=== PATIENT | female | born 1960 | race African-American/Black ===

== ENCOUNTER 2016-11-13 15:09 | Inpatient (IN) | payer MEDICARE, OTHER ==
[~2016-11-13] VITALS: Ht 152.4 cm; Wt 54.9 kg
[2016-11-13] MEDS ORDERED: LEVO75TA7 PO (15:27)
[2016-11-13] MEDS ORDERED: LISI10TA5 PO (15:27)
[2016-11-13] MEDS ORDERED: HYDR-552 PO ×2 (15:27→16:24)
[2016-11-13] MEDS ORDERED: CARV3.122 PO (15:27)
[2016-11-13] MEDS ORDERED: ZOLPIDEM TARTRATE 10 MG TABLET PO PRN (15:30)
[2016-11-13] MEDS ORDERED: MAGNESIUM HYDROXIDE 30 ML UDC PO PRN (15:30)
[2016-11-13] MEDS ORDERED: MAG HYDROX/AL HYDROX/SIMETH 30 ML UDC PO PRN (15:30)
[2016-11-13 15:38] VITALS: BP 146/81
[2016-11-13 16:00] VITALS: BP 146/81
[2016-11-13] MEDS: clonazePAM 0.5 MG TABLET PO PRN (16:44)
--- NOTE | 2016-11-13 16:46 | NUR ---
ADMITTED A 56 YEARS OLD ON 5150 FOR DTS. PT. REPORTED BEING DEPRESSED, UNABLE TO EAT OR SLEEP, STATED OUT OF MEDICATIONS AND DOESN'T FEEL SAFE, PT. STATED ALSO THAT UNKNOWN PEOPLE ARE AFTER HER. PER CLIENT'S SISTER CLIENT WROTE SUICIDAL NOTE RECENTLY. PT. CAME FROM [facility] AND ARRIVED IN THE UNIT VIA AMBULANCE AND TRANSPORTED VIA A GURNEY. PT. IS ALERT/ ORIENTED X3, AMBULATORY, CONTINENT AND WITH POOR HYGIENE. UPON FACE TO ASSESSMENT, PT. DENIES SUICIDAL AND HOMICIDAL AND CLAIMED SHE IS DEPRESSED. PT. REFUSED FOR SKIN ASSESSMENT, REFUSED SIGNING THE ADMISSION PAPERS AND REFUSED FOR NASAL SWAB FOR MRSA. DR. NAIR NOTIFIED ABOUT THE ADMISSION AND GAVE ORDERS. ROVERTO HALL MADE AWARE AND TOLD TO RECONCILE MEDS. Addendum: 11/13/16 at 1738 by BRYANNA PETERS RN PHILIP GA AT [phone] CALLED AND LEFT A MESSAGE TO CALL THE UNIT.
[2016-11-13 20:00] VITALS: BP 114/75
[2016-11-13] MEDS: HYDROCODONE/APAP 5/325MG 1 EACH TABLET PO PRN (20:02)
[2016-11-14] MEDS: clonazePAM 0.5 MG TABLET PO PRN ×3 (07:22→18:18)
[2016-11-14] MEDS: LEVOTHYROXINE SODIUM 75 MCG TABLET PO SCH (07:23)
--- NOTE | 2016-11-14 07:27 | NUR ---
GPS RN: PATIENT IS RESTLESS, ANXIOUS, WITH EPISODES OF CRYING, HARD TO REDIRECT, ASKING FOR CLONAZEPAM TO HELP HER CALM DOWN. ADMINISTERED 0.5MG CLONAZEPAM PO ORDERED, CONTINUE TO MONITOR.
[2016-11-14 08:00] VITALS: BP 115/88
[2016-11-14] MEDS: CARVEDILOL 3.125 MG TABLET PO SCH ×2 (08:43→16:12)
[2016-11-14] MEDS: LISINOPRIL (10MG) 10 MG TABLET PO SCH (08:44)
--- NOTE | 2016-11-14 09:34 | NUR ---
Initial DC Plan: Patient resides at [address] [place] [address] [place] [id number]; [phone] with her son. Patient stated that she would like to return home when she is ready for discharge. SW spoke to patient's daughter Veto Epps ([phone]) who stated "I don't care where my mother goes. She can go home if she wants." Patient unable to recall the number of her son Emmanuel but stated that she will try to get it. Patient's daughter stated that she is unable to cone picker the patient when she is ready for discharge but patient stated that she will try calling her sister and SW will follow up. SW will help form a safe and proper discharge. Addendum: 11/14/16 at 0937 by VEE STEWART For smoking cessation, patient was referred to [employer] 524-HHFG-YUM and [employer] [phone]. Patient will be given further smoking cessation resources at the time of discharge and Nicotine Anonymous meeting information.
[2016-11-14] MEDS: HYDROCODONE/APAP 5/325MG 1 EACH TABLET PO PRN ×2 (11:46→21:43)
--- NOTE | 2016-11-14 13:29 | NUR ---
GPS RN: PATIENT IS RESTLESS AND ANXIOUS, ASKING FOR CLONAZEPAM TO HELP HER CALM DOWN. ADMINISTERED 0.5MG CLONAZEPAM PO ORDERED, VSS, CONTINUE TO MONITOR.
--- NOTE | 2016-11-14 15:02 | NUR ---
RN-CO: Patient refused lab works encouraged 3x still refused.
[2016-11-14 16:00] VITALS: BP 100/73
--- NOTE | 2016-11-14 18:21 | NUR ---
GPS RN: ADMINISTERED 0.5MG CLONAZEPAM PO FOR C/O ANXIETY.
--- NOTE | 2016-11-14 19:30 | NUR ---
GPS RN NOTE, RECEIVED PATIENT AWAKE AND IN BED, PATIENT HAS A COMPLAINT OF LOWER BACK PAIN AT 4 OUT 10 ON THE PAIN SCALE. PATIENT IS BEING TREATED WITH ORAL PAIN MEDICATION FOR THIS PAIN. PATIENT IS DISPLAYING NO S/S OF APPARENT DISTRESS AT THIS TIME. PATIENT BREATHING IS UNLABORED WITH EQUAL RISE AND FALL OF THE CHEST. PATIENT IS ALERT AND ORIENTED X 3 ON ROOM AIR WITH A SPO2 OF 99%. PATIENT IS MED COMPLIANT, PARANOID, DEMANDING, DEPRESSED, AND NEEDS REORIENTATION. PATIENT DENIES SUICIDE IDEATIONS AND HOMICIDAL IDEATIONS AT THIS TIME. PATIENT ASSISTED WITH TURNING AND REPOSITIONING Q2HR AND PRN FOR COMFORT AND CIRCULATION. PATIENT HAS NO NEEDS AT THIS TIME. PATIENT EDUCATED ON THE USE OF THE CALL BRENNAN. PATIENT BED SIDE RAILS ARE UP X2 FOR SAFETY, BED IS LOCKED AND LOW WILL CONTINUE TO MONITOR AND MAINTAIN SAFETY.
[2016-11-14 20:22] VITALS: BP 93/61
--- NOTE | 2016-11-14 21:43 | NUR ---
GPS RN NOTE, PATIENT HAS A COMPLAINT OF LOWER BACK PAIN AT 8 OUT 10 ON THE PAIN SCALE AND WOULD LIKE PAIN MEDICATION AT THIS TIME. PATIENT VITAL SIGNS ARE STABLE. GAVE NORCO 5-325 1 TAB PO Q6HR PRN ORDERED. WILL REASSESS PAIN AND I WILL CONTINUE TO MONITOR THIS PATIENT.
[2016-11-14] MEDS ORDERED: TEMAZEPAM 15 MG CAPSULE PO PRN (22:00)
[2016-11-15] MEDS: clonazePAM 0.5 MG TABLET PO PRN (05:08)
--- NOTE | 2016-11-15 05:08 | NUR ---
GPS RN NOTE, PATIENT HAS A COMPLAINT OF FEELING ANXIOUS AND WOULD LIKE MEDICATION TO HELP CALM HER DOWN AT THIS TIME. PATIENT VITAL SIGNS ARE STABLE. GAVE KLONOPIN 0.5MG PO Q4HR PRN ORDERED. WILL REASSESS FOR ANXIETY AND I WILL CONTINUE TO MONITOR THIS PATIENT.
[2016-11-15 08:00] VITALS: BP 122/79
[2016-11-15] MEDS: LEVOTHYROXINE SODIUM 75 MCG TABLET PO SCH (08:47)
[2016-11-15] MEDS: SERTRALINE HCL 50 MG TABLET PO SCH (08:47)
[2016-11-15] MEDS: LISINOPRIL (10MG) 10 MG TABLET PO SCH (08:53)
[2016-11-15] MEDS: CARVEDILOL 3.125 MG TABLET PO SCH ×2 (08:53→16:22)
--- NOTE | 2016-11-15 09:13 | NUR ---
GPS RN: MORNING MEDS ADMINISTERED BY ROSIE MIXON RN
[2016-11-15] MEDS: HYDROCODONE/APAP 5/325MG 1 EACH TABLET PO PRN ×2 (14:54→20:59)
[2016-11-15 16:00] VITALS: BP 120/70
[2016-11-15 20:00] VITALS: BP 102/66
[2016-11-16] MEDS: clonazePAM 0.5 MG TABLET PO PRN (00:49)
[2016-11-16] MEDS: HYDROCODONE/APAP 5/325MG 1 EACH TABLET PO PRN (06:40)
[2016-11-16 08:10] VITALS: BP 99/63
[2016-11-16] MEDS: LISINOPRIL (10MG) 10 MG TABLET PO SCH (08:10)
[2016-11-16] MEDS: CARVEDILOL 3.125 MG TABLET PO SCH (08:10)
[2016-11-16] MEDS: LEVOTHYROXINE SODIUM 75 MCG TABLET PO SCH (08:11)
[2016-11-16] MEDS: SERTRALINE HCL 50 MG TABLET PO SCH ×2 (08:11→08:14)
--- NOTE | 2016-11-16 10:00 | NUR ---
RECEIVED PT. ASLEEP IN BED, BREATHING IS EVEN AND UNLABORED. NO SIGN OF DISTRESS AND NO AGITATION NOTED. WILL CONTINUE TO MONITOR FOR SAFETY.
--- NOTE | 2016-11-16 12:58 | NUR ---
DR. NAIR WITH AN ORDER TO D/C HOLD AND D/C HOME WITH THE DAUGHTER. PT. WITHOUT DISTRESS, DENIES SUICIDAL AND HOMICIDAL. DR. NAIR SPOKE TO THE DAUGHTER PHILIP GA AND SHE WILL COME TO PICK HER UP.
--- NOTE | 2016-11-16 13:08 | NUR ---
JOEY MOSELEY THE HEAVY D[employer]Y DIESEL MECHANIC, MADE AWARE OF THE DISCHARGE AND SAID OK FOR DISCHARGE. HE WROTE PRESCRIPTIONS.
--- NOTE | 2016-11-16 14:50 | NUR ---
PT. LEFT THE UNIT UNIT WITH BELONGINGS AND PICKED UP WITH HER DAUGHTER PHILIP GA. PT. INSTRUCTED ON MEDS TO CONTINUE AT HOME AND VERBALIZES UNDERSTANDING AND ADVISED TO MAKE A FOLLOW UP TO HER PSYCHIATRIST AND MEDICAL DOCTORS AND AGREED. LEFT THE UNIT, AMBULATORY, WITHOUT DISTRESS AND ESCORTED BY STAFF TO THE LOBBY ON STABLE CONDITION. V/S TAKE: 112/69, MT 83, RR 18, TEMP 98.0 AND OXYGEN SAT 94%.
== END 2016-11-16 14:50 | disposition home or self-care (01) | DRG 885 ==
LOC: GPS 15:09
PROVIDERS: ADMIT Psychiatry & Neurology Psychiatry; ATTEND Nurse Practitioner Acute Care
DX: F33.2 Major depressive disorder, recurrent severe without psychotic features (principal); I10 Essential (primary) hypertension; G89.29 Other chronic pain; M54.9 Dorsalgia, unspecified; F29 Unspecified psychosis not due to a substance or known physiological condition; M79.7 Fibromyalgia